=== PATIENT | female | born 1985 | race Caucasian/White ===

== ENCOUNTER → 2016-07-26 | Outpatient (CLI) | payer SELFPAY | LOC: HHS 09:41 | DX: Z12.83 Encounter for screening for malignant neoplasm of skin (principal) ==

== ENCOUNTER 2017-01-05 11:31 | Inpatient (IN) | payer OTHER ==
--- NOTE | 2017-01-05 12:16 | Non Stress Test Report ---
Non Stress Test Datetime Report Generated by CPN: 01/05/2017 12:16 DEMOGRAPHIC Test Number: 1 EGA NST: 40.1 INDICATION Indication for Study: Ordered by Provider MONITORING Monitor Explained: Monitor Explained; Test Explained; Patient Verbalized Understanding Time on Monitor: 01/05/2017 11:40 Time off Monitor: 01/05/2017 12:12 NST Duration: 32 NST INTERVENTIONS NST Interventions: PO Hydration Physician Notified NST: Jason BABY A: [id number] BABY A Movement : Present Contraction Frequency : Irregular FHR Baseline : 130 Accelerations : 15X15 Decelerations : None Variability : Moderate 6-25bpm NST Review: Meets Criteria for Reactive NST NST Review and Verified By : AMIE Pyle Results: Reactive NST REPORT Report Trigger: Send Report
--- NOTE | 2017-01-05 13:13 | RADIOLOGY REPORT (SQ) ---
EXAM DESCRIPTION: U/S OB LIMITED COMPLETED DATE/TIME: 01/05/2017 12:53 pm REASON FOR STUDY: CHARI at 40.1 weeks postdates COMPARISON: None. TECHNIQUE: Limited transabdominal grayscale ultrasound for evaluation of specific requested obstetri wilberto parameters. LIMITATIONS: None. FINDINGS: CERVICAL LENGTH: Not applicable. Greater than 20 weeks. Need transvaginal study if indicat ed. Closed. CHARI: 1.8 cm. FHR: 123 beats per minute. PRESENTATION: Cephalic. OTHER: No other significant findings. IMPRESSION: LIMITED OBSTETRICAL ULTRASOUND WITH MEASURED PARAMETERS DELINEATED ABOVE. Trimester of : 3rd TECHNICAL DOCUMENTATION: JOB ID: [id number] [employer]- All Rights Reserved
[2017-01-05] MEDS ORDERED: RINGERS SOLUTION,LACTATED 1,000 ML IV ONE (14:03)
[2017-01-05] MEDS ORDERED: PENICILLIN G POTASSIUM 5,000,000 UNIT in DEXTROSE 5%-WATER 100 ML IV ONE (14:20)
[2017-01-05 14:37] LABS: ABSOLUTE EOSINOPHILS # (AUTO) 0.1 10^3/uL (0.0-0.6); ABSOLUTE LYMPHOCYTES (AUTO) 1.3 10^3/uL (0.5-4.7); ABSOLUTE MONOCYTES (AUTO) 0.5 10^3/uL (0.1-1.4); ABSOLUTE NEUT (AUTO) 6.1 10^3/uL (1.7-8.2); BASOPHILS % (AUTO) 0.2 % (0-2); EOSINOPHILS % (AUTO) 0.8 % (0-6); HEMATOCRIT 35.9 % (36.0-47.0); HEMOGLOBIN 12.3 g/dL (12.0-15.5); LYMPHOCYTES % (AUTO) 16.4 % (13-45); MEAN CORPUSCULAR HEMOGLOBIN 28.9 pg (27.0-33.4); MEAN CORPUSCULAR HGB CONC 34.1 g/dL (32.0-36.0); MEAN CORPUSCULAR VOLUME 85 fl (80-97); MONOCYTES % (AUTO) 6.1 % (3-13); RED BLOOD COUNT 4.24 10^6/uL (3.72-5.28); RED CELL DISTRIBUTION WIDTH 13.8 % (11.5-14.0); SEGMENTED NEUTROPHILS % (AUTO) 76.5 % (42-78); WHITE BLOOD COUNT 7.9 10^3/uL (4.0-10.5)
[2017-01-05] MEDS ORDERED: MISOPROSTOL 0.1 MG TABLET ONE ×2 (15:51→15:59)
[2017-01-05] MEDS: RINGERS SOLUTION,LACTATED 1,000 ML IV PRN ×3 (15:56→20:48)
[2017-01-05] MEDS ORDERED: MISOPROSTOL 0.1 MG TABLET PO SCH (16:00)
[2017-01-05] MEDS ORDERED: PENICILLIN G POTASSIUM 2,500,000 UNIT in DEXTROSE 5%-WATER 50 ML IV SCH (18:21)
[2017-01-05] MEDS ORDERED: DINOPROSTONE 10 MG VAGINAL INSERT.SR PV PRN (20:17)
[2017-01-05] MEDS ORDERED: PENICILLIN G-K 5 MILLION UNIT VIAL IV PRN (20:40)
[2017-01-05] MEDS ORDERED: DINOPROSTONE 10 MG VAGINAL INSERT.SR ONE (20:46)
[2017-01-05] MEDS ORDERED: VALACYCLOVIR HCL 500 MG TABLET ONE (22:21)
[2017-01-05] MEDS: VALACYCLOVIR HCL 500 MG TABLET PO SCH (22:22)
[2017-01-06] MEDS ORDERED: PROMETHAZINE HCL INJ 50 MG/1 ML VIAL IM PRN (03:34)
[2017-01-06] MEDS ORDERED: NALBUPHINE HCL INJ 10 MG/1 ML AMPULE INJ ONE (03:35)
[2017-01-06] MEDS ORDERED: PROMETHAZINE HCL INJ 25 MG/1 ML VIAL ONE (03:36)
[2017-01-06] MEDS ORDERED: NALBUPHINE HCL INJ 10 MG/1 ML AMPULE ONE (03:37)
[2017-01-06 03:41] LABS: APPEARANCE,URINE CLEAR; BILIRUBIN,URINE NEGATIVE (NEGATIVE); GLUCOSE, URINE NEGATIVE (NEGATIVE); KETONES,URINE NEGATIVE (NEGATIVE); LEUKOCYTE ESTERASE,URINE NEGATIVE (NEGATIVE); NITRITE,URINE NEGATIVE (NEGATIVE); PROTEIN,URINE NEGATIVE (NEGATIVE); URINE SPECIFIC GRAVITY 1.017; UROBILINOGEN,URINE NEGATIVE mg/dL (<2.0)
[2017-01-06] MEDS: RINGERS SOLUTION,LACTATED 1,000 ML IV PRN (03:45)
[2017-01-06 03:57] LABS: URINE BARBITURATES SCREEN NEGATIVE; URINE METHADONE SCREEN NEGATIVE; URINE OPIATES LOW NEGATIVE; URINE PHENCYCLIDINE SCREEN NEGATIVE
[2017-01-06] MEDS ORDERED: TERBUTALINE SULFATE INJ/PF 1 MG/1 ML SDV ONE (05:30)
[2017-01-06] MEDS ORDERED: BUPIVACAINE HCL 0.25 % INJ/PF (2.5 MG/1 ML) 30 ML VIAL ONE (06:18)
[2017-01-06] MEDS ORDERED: FENTANYL/BUPIVACAINE/NS/PF 200 MCG/100 ML RTUINJ EPI ONE (06:18)
[2017-01-06] MEDS ORDERED: EPHEDRINE SULFATE INJ 50 MG/1 ML AMPULE ONE (06:18)
[2017-01-06] MEDS ORDERED: MISOPROSTOL 0.2 MG TABLET ONE ×2 (07:03→07:04)
[2017-01-06] MEDS ORDERED: LIDOCAINE 1% INJ-PF (10 MG/ML) 30 ML SDV ONE (07:03)
[2017-01-06] MEDS ORDERED: OXYTOCIN/NORMAL SALINE 20 UNIT/1,000 ML RTUINJ ONE (07:04)
--- NOTE | 2017-01-06 07:08 | L&D Progress Notes ---
PROGRESS NOTES Datetime Report Generated by CPN: 01/06/2017 07:08 PROGRESS NOTE Impression: Normal Progression of Labor Impression Other: Utero-placental insufficiency Procedures: Artificial ROM; Intrauterine Pressure Catheter; Scalp Electrode Procedures- Other: Terbutaline administered x 3 Plan: Continue Present Management Plan Other: minimize BP drops Informed Consent Obtained: Risks, Benefits and Alternatives Discussed Vital Signs : Reviewed; Within Normal Limits Comment: Called by nursing 2nd to prolonged decel down to the 90s for 7mins. Pts cervidil was pulled by nursing staff, bolused fluid and given oxygen. Pt was given 3 doses of terbutaline to tocalize and allow recovery. Best recovery in knee chest. Fetus eventually recovered and was allowed to lay down and be positioned for her epidural. VAGINAL EXAM Dilatation: 5 Dilatation: closed Effacement: 90 Effacement: thick Station: 0 Station: -2 Contractions: 1-2 Contractions: irregular MEMBRANES Membranes: Ruptured Membranes: Intact FETUS A FHR - Baseline: 120s Monitoring: External US Variability: Moderate 6-25bpm Accelerations: Absent Decelerations: Early; Late; Prolonged FHR Category: Category II FHR Comments: Utereoplacental insufficiency noted with tachysystole Estimated Weight (gm): 3000g Estimated Weight (gm): Approx. 3000g Presentation: Vertex SIGNATURE SIGNATURE: [id number] SIGNATURE: [id number] Signature: with User ID: [email or web address]
[2017-01-06] MEDS ORDERED: PENICILLIN G-K 5 MILLION UNIT VIAL ONE (08:59)
[2017-01-06] MEDS ORDERED: OXYTOCIN/NORMAL SALINE 20 UNIT/1,000 ML RTUINJ IV PRN ×2 (10:27→13:12)
[2017-01-06] MEDS ORDERED: NA PHOS,M-B/NA PHOS,DI-BA (ADULT) 133 ML ENEMA PR PRN (13:12)
[2017-01-06] MEDS ORDERED: MAGNESIUM HYDROXIDE SUSP 30 ML UDCUP PO PRN (13:12)
[2017-01-06] MEDS ORDERED: PROMETHAZINE HCL 25 MG TABLET PO PRN (13:12)
[2017-01-06] MEDS ORDERED: ACETAMINOPHEN WITH CODEINE #3 TABLET PO PRN ×2 (13:12)
[2017-01-06] MEDS ORDERED: MEASLES,MUMPS&RUBELLA VACC/PF 0.5 ML VIAL SUBCUT PRN (13:12)
[2017-01-06] MEDS ORDERED: PROMETHAZINE HCL 25 MG SUPP.RECT PR PRN (13:12)
[2017-01-06] MEDS ORDERED: DIPH/PERTUSS(ACELL)/TETANUS VAC/PF 0.5 ML SYR (>=10YO) IM PRN (13:12)
[2017-01-06] MEDS ORDERED: BENZOCAINE/MENTHOL AEROSOL SPRAY 56 ML TOP PRN (13:12)
[2017-01-06] MEDS ORDERED: DIBUCAINE 1% OINTMENT 28 GM TP PRN (13:12)
[2017-01-06] MEDS ORDERED: PROMETHAZINE HCL INJ 25 MG/1 ML VIAL IV PRN (13:12)
[2017-01-06] MEDS ORDERED: ACETAMINOPHEN 650 MG SUPP.RECT PR PRN (13:12)
[2017-01-06] MEDS ORDERED: PSEUDOEPHEDRINE HCL 30 MG TABLET PO PRN (13:12)
[2017-01-06] MEDS ORDERED: ZOLPIDEM TARTRATE 5 MG TABLET PO PRN (13:12)
[2017-01-06] MEDS ORDERED: GLYCERIN/WITCH HAZEL LEAF 1 EACH MED..PAD TP PRN (13:12)
[2017-01-06] MEDS ORDERED: DIPHENHYDRAMINE HCL 25 MG CAPSULE PO PRN (13:12)
--- NOTE | 2017-01-06 14:32 | Delivery Summary ---
Del Sum A-C Datetime Report Generated by CPN: 01/06/2017 14:32 DELIVERY PERSONNEL DELIVERY PERSONNEL: [id number] Delivery Doctor:: Hortencia Smith MD Labor and Delivery Nurse:: Ramya Lara RN Nursery Nurse:: Porshatheresa Peterson RN MATERNAL INFORMATION Delivery Anesthesia: Epidural Medications After Delivery: Pitocin Bolus-Please Comment; Pitocin Drip 20 Units/1000ml NSS Meds After Delivery Comment: Pitocin 20 units in 1000ml NS Estimated Blood Loss (ml): 150 Maternal Complications: None LABOR SUMMARY EDC: 01/04/2017 00:00 No. Babies in Womb: 1 Attempted: No Labor Anesthesia: Epidural LABOR INFORMATION Reason for Induction: Oligohydramnios Onset of Labor: 01/06/2017 05:41 Complete Dilatation: 01/06/2017 11:47 Cervical Ripening Agents: Cervidil Oxytocin: N/A Group B Beta Strep: Positive Antibiotics # of Doses: 2 Antibiotics Time of Last Dose: 909 Name of Antibiotic Given: PCN Steroids Given: None Reason Steroids Not Administered: Not Applicable MEMBRANES Membranes Rupture Method: Artificial Rupture of Membranes: 01/06/2017 05:46 Length of Rupture (hr): 6.95 Amniotic Fluid Color: Bloody Amniotic Fluid Amount: Scant Amniotic Fluid Odor: Normal STAGES OF LABOR Stage 1 hr: 6 Stage 1 min: 6 Stage 2 hr: 0 Stage 2 min: 56 Stage 3 hr: 0 Stage 3 min: 4 Total Time in Labor hr: 7 Total Time in Labor min: 6 VAGINAL DELIVERY Episiotomy: None Laceration #1: None Laceration Extension #1: N/A Laceration Repair: Not Applicable Sponge Count Correct: Yes Sharps Count Correct: Yes CSECTION DELIVERY Primary Indication: N/A Secondary Indication: N/A CSection Incidence: N/A Labor: N/A Elective: N/A CSection Incision: N/A BABY A INFORMATION Delivery Date/Time: 01/06/2017 12:43 Method of Delivery: Vaginal Born in Route : No : N/A Forceps: N/A Vacuum Extraction: N/A Shoulder Dystocia : No PRESENTATION/POSITION BABY A Presentation: Cephalic Cephalic Presentation: Vertex Vertex Position: Left Occipital Posterior Breech Presentation: N/A PLACENTA INFORMATION BABY A Placenta Delivery Time : 01/06/2017 12:47 Placenta Method of Delivery: Spontaneous Placenta Status: Delivered SCORES BABY A Heart Rate 1 min: >100 bpm Resp Effort 1 min: Good Cry Reflex Irritability 1 min: Cough or Sneeze or Pulls Away Muscle Tone 1 min: Active Motion Color 1 min: Blue/Pale Resuscitation Effort 1 min: Tactile Stimulation SCORE 1 MIN: 8 Heart Rate 5 min: >100 bpm Resp Effort 5 min: Good Cry Reflex Irritability 5 min: Cough or Sneeze or Pulls Away Muscle Tone 5 min: Active Motion Color 5 min: Body Dennard, Extremities Blue Resuscitation Effort 5 min: Tactile Stimulation SCORE 5 MIN: 9 INFANT INFORMATION BABY A Gestational Age at Delivery: 40.2 Gestational Status: Full Term- 39- 40.6 Weeks Outcome : Liveborn Condition : Stable Infant Sex: Female IDENTIFICATION BABY A Verification Date/Time: 01/06/2017 13:25 ID Band Number: [id number] Mother's Name Verified: Yes Infant RN Verifying : B Baidy RN/ H Nicholas RN WEIGHT/LENGTH BABY A Birthweight (gm): 3358 Weight (lb): 7 Weight (oz): 6 Infant Length (in): 21.50 Infant Length (cm): 54.61 CORD INFORMATION BABY A No. Cord Vessels: 3 Nuchal Cord : Around Neck x1, Loose Cord Blood Taken: Yes-For Eval (Mom's Blood Type - or O+) Suction: Nose ASSESSMENT BABY A Complications: Multiple Late Decels Physical Findings at Delivery: Within Normal Limits Infant Respirations: Appears Normal [facility] Aide/ALS Called : No Infant Care By: H. Nicholas, RN Transferred To: Remains with Mother BABY B INFORMATION : N/A ASSESSMENT BABY C Skin to Skin: Yes Skin to Skin Time (min): 110 SIGNATURES Signature: with User ID: [email or web address]
--- NOTE | 2017-01-06 15:17 | Admission Physical ---
Datetime Report Generated by CPN: 01/06/2017 15:17 CURRENT ADMISSION Hx Assessment: The History has been Reviewed and is Current Chief Complaint Other: Not olighydramnios on APFS today Indication for Induction: Oligohydramnios Indication for Induction: Term, Intrauterine ; Obstetrical Complication Admit Plan: Admit to Unit ALLERGIES Medication Allergies: No Medication Allergies: No Known Allergies (01/05/2017) Latex: No Latex Allergies Food Allergies: None Environmental Allergies: None OBSTETRICAL HISTORY EDC: 01/04/2017 00:00 : 1 Para: 0 Gestational Diabetes: No Rh Sensitization: No Incompetent Cervix: No IZA: No Infertility: No ART Treatment: No Uterine Anomaly: No IUGR: No Hx Previous C/S: No Macrosomia: No Hx Loss/Stillborn: No PIH: No Hx : No Placenta Previa/Abruption: No Depression/PP Depression: No PTL/PROM: No Post Hemorrhage: No Current Procedures: Ultrasound Obstetrical History Comments: G1 - Current SEE RECORDS Alcohol: No Marijuana : No Cocaine: No Other Illicit Drugs: No Cigarettes: Never Smoker. 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 Surgery: No Heart Disease: No Hosp/Surgery: Yes Autoimmune Disorder: No Anesthetic Complications: No Kidney Disease: No Abnormal Pap Smear: No Neuro/Epilepsy: No Psychiatric Disorders: No Other Medical Diseases: No Hepatitis/Liver Disease: No Significant Family History: No Varicosities/Phlebitis: No Trauma/Violence : No Thyroid Dysfunction: No Medical History Comments: Left Shoulder Surgery - 2011; T_A; [place] Teeth removed; Breast Implants - 2012 INFECTIOUS HISTORY Gonorrhea: No Genital Herpes: Yes Chlamydia: No Tuberculosis: No Syphilis: No Hepatitis: No HIV/AIDS Exposure: No Rash or Viral Illness: No HPV: No Infectious History Comments: Valtrex - BID PHYSICAL EXAM General: Normal HEENT: Normal Neurologic: Normal Thyroid: Deferred Heart: Normal Lungs: Normal Back: Normal Abdomen: Normal Genitourinary Exam: Normal Extremities: Normal Pelvic Type: Adequate Physical Exam Comments: Abdomen: Gravid and NT SSE: no perineal or vaginal lesions noted Vital Signs: Reviewed; Within Normal Limits VAGINAL EXAM Dilatation: 5 Dilatation: closed Effacement: 90 Effacement: thick Station: 0 Station: -2 Contraction Comments: 1-2 Contraction Comments: irregular MEMBRANES Membranes: Ruptured Membranes: Intact FETUS A Monitoring: External US FHR- Baseline: 120s Accelerations: 15X15 Decelerations: None FHR Category: Category I FHR Comments: Reasurring status Estimated Weight (gm): 3000g Estimated Weight (gm): Approx. 3000g Presentation: Vertex Admit Comment: 31yo G1 @ 40w1d presents to L_D for APFS consisting of modified BPP of NST and CHARI. Pt reports good fm, no vb, no lof, no regular ctxs. Pt denies any problems with this . Pt denies any prodromal symptoms or active symptoms of herpes. Pt states her last dose of valtrex was this morning. PLANS FOR LABOR AND DELIVERY Labor and Delivery: None Pain Management: Natural Feeding Preference: Breast Benefit of Breast Feed Discussed: Yes Circumcision: N/A INFORMED CONSENT Informed Consent Obtained: Risks, Benefits and Alternatives Discussed Signature: with User ID: [email or web address]
[2017-01-06] MEDS: VALACYCLOVIR HCL 500 MG TABLET PO SCH ×2 (17:35→21:58)
[2017-01-06] MEDS: IBUPROFEN 800 MG TABLET PO SCH ×2 (17:35→21:58)
[2017-01-06] MEDS: DOCUSATE SODIUM 100 MG CAPSULE PO SCH (17:37)
[2017-01-06] MEDS: FERROUS SULFATE 325 MG TABLET PO SCH (17:38)
[2017-01-06] MEDS: FAMOTIDINE 20 MG TABLET PO SCH (21:58)
[2017-01-07] MEDS: IBUPROFEN 800 MG TABLET PO SCH ×3 (06:26→21:35)
[2017-01-07 07:42] LABS: HEMOGLOBIN 10.4 g/dL (12.0-15.5); HGB HCT DIFFERENCE 1.2; MEAN CORPUSCULAR HEMOGLOBIN 29.4 pg (27.0-33.4); MEAN CORPUSCULAR HGB CONC 34.6 g/dL (32.0-36.0); MEAN CORPUSCULAR VOLUME 85 fl (80-97); RED BLOOD COUNT 3.52 10^6/uL (3.72-5.28); RED CELL DISTRIBUTION WIDTH 14.1 % (11.5-14.0); WHITE BLOOD COUNT 12.4 10^3/uL (4.0-10.5)
--- NOTE | 2017-01-07 10:02 | PDOC PROGRESS REPORT ---
Subjective-OB Subjective: Post Delivery Day: 32 year old. Denies any needs at this time Doing well, no c/o, breast feeding, voiding, no c/o Physical Exam (OB) Vital Signs: Temp Pulse Resp BP Pulse Ox 98.1 F 66 17 114/65 96 01/07/17 08:06 01/07/17 08:06 01/07/17 08:06 01/07/17 08:06 01/07/17 08:06 Intake & Output 01/06/17 01/07/17 01/08/17 06:59 06:59 06:59 Weight 78.85 kg - PIH/Pre-Eclampsia DTR's: 1 + Clonus: Negative Headache: Absent Epigastric Pain: No Visual Changes: No - Lochia Lochia Amount: Scant < 10 ml Lochia Color: Rubra/Red - Abdomen Description: Soft, Flat Hernia Present: No Fundal Description: Firm, Midline Describe if Not Midline: devated to left, pt due to void Fundal Height: u/u - u/2 Objective-Diagnostic Laboratory: 01/07/17 07:07 01/07/17 07:07 WBC 12.4 H RBC 3.52 L Hgb 10.4 L Hct 30.0 L MCV 85 MCH 29.4 MCHC 34.6 RDW 14.1 H Plt Count 103 L Assessment and Plan(PN) - Assessment and Plan (1) Anemia Qualifiers: Anemia type: iron deficiency Is this a current diagnosis for this admission?: Yes (2) Oligohydramnios delivered Is this a current diagnosis for this admission?: Yes (3) Vaginal delivery Is this a current diagnosis for this admission?: Yes - Time Spent with Patient Time with patient: Less than 15 minutes Medications reviewed and adjusted accordingly: Yes - Disposition Anticipated Discharge: Home Within: within 24 hours
[2017-01-07] MEDS: FERROUS SULFATE 325 MG TABLET PO SCH ×2 (10:51→17:19)
[2017-01-07] MEDS: PRENATAL VITAMIN W DHA CAPSULE PO SCH (10:51)
[2017-01-07] MEDS: DOCUSATE SODIUM 100 MG CAPSULE PO SCH ×2 (10:51→17:19)
[2017-01-07] MEDS: SENNOSIDES/DOCUSATE 8.6-50 MG 1 EACH TABLET PO SCH (10:51)
[2017-01-07] MEDS: FAMOTIDINE 20 MG TABLET PO SCH ×2 (10:51→21:35)
[2017-01-07] MEDS: VALACYCLOVIR HCL 500 MG TABLET PO SCH ×2 (10:51→21:35)
[2017-01-08] MEDS: IBUPROFEN 800 MG TABLET PO SCH ×2 (05:16→14:11)
[2017-01-08 09:07] VITALS: BP 108/63
[2017-01-08] MEDS: VALACYCLOVIR HCL 500 MG TABLET PO SCH (09:21)
[2017-01-08] MEDS: SENNOSIDES/DOCUSATE 8.6-50 MG 1 EACH TABLET PO SCH (09:21)
[2017-01-08] MEDS: DOCUSATE SODIUM 100 MG CAPSULE PO SCH ×2 (09:21→17:28)
[2017-01-08] MEDS: PRENATAL VITAMIN W DHA CAPSULE PO SCH (09:21)
[2017-01-08] MEDS: FERROUS SULFATE 325 MG TABLET PO SCH ×2 (09:21→17:28)
[2017-01-08] MEDS: FAMOTIDINE 20 MG TABLET PO SCH (09:21)
--- NOTE | 2017-01-08 10:07 | PDOC DISCHARGE SUMMARY ---
Final Diagnosis Discharge Date: 01/08/17 - Final Diagnosis (1) Acute blood loss anemia Is this a current diagnosis for this admission?: Yes (2) Oligohydramnios delivered Is this a current diagnosis for this admission?: Yes (3) Vaginal delivery Is this a current diagnosis for this admission?: Yes Discharge Data - Discharge Medication Home Medications: No122/Iron/Folic Acid [ Multi Tablet] 1 each PO DAILY 01/05/17 Ferrous Sulfate [Feosol 325 mg Tablet] 325 mg PO BID #60 tablet 01/08/17 Ibuprofen [Motrin 800 mg Tablet] 800 mg PO Q8HP PRN #30 tablet 01/08/17 Reason(s) for Admission: Induction of Labor - oligohydramnios Procedures: NST, Ultrasound Intrapartum Procedure(s): Spontaneous Vaginal Delivery - Diagnosis Test Laboratory: Temp Pulse Resp BP Pulse Ox 98.6 F 66 16 129/84 H 100 01/08/17 08:06 01/08/17 08:06 01/08/17 08:06 01/07/17 21:03 01/08/17 08:06 01/05/17 01/06/17 01/07/17 14:26 03:19 07:07 RBC 4.24 3.52 L Hgb 12.3 10.4 L Hct 35.9 L 30.0 L Urine Opiates Screen NEGATIVE - Discharge information/Instructions Discharge Activity: Activity As Tolerated, Balance Activity w/Rest, No Lifting/ Push/Pulling, Pelvic Rest, Slowly Increase Activity Discharge Diet: Regular Disposition: HOME, SELF-CARE Follow up with: [facility] in: 4, Weeks
[2017-01-08] MEDS ORDERED: MISOPROSTOL 0.2 MG TABLET PV ONE (12:25)
== END 2017-01-08 18:35 | disposition home or self-care (01) | DRG 774 ==
LOC: LC 11:31 → LR 13:29 → 2S 01-06 15:15
PROVIDERS: ADMIT Obstetrics & Gynecology; ATTEND Obstetrics & Gynecology
PROC: 10E0XZZ Delivery of Products of Conception, External Approach (ICD-10-PCS; principal; 2017-01-06)
DX: O99.824 Streptococcus B carrier state complicating childbirth (principal); O98.32 Other infections with a predominantly sexual mode of transmission complicating childbirth; O41.03X0 Oligohydramnios, third trimester, not applicable or unspecified; Z37.0 Single live birth; O69.81X0 Labor and delivery complicated by cord around neck, without compression, not applicable or unspecified; A60.09 Herpesviral infection of other urogenital tract; O99.02 Anemia complicating childbirth; D50.9 Iron deficiency anemia, unspecified; O76 Abnormality in fetal heart rate and rhythm complicating labor and delivery; B96.20 Unspecified Escherichia coli [E. coli] as the cause of diseases classified elsewhere; Z3A.40 40 weeks gestation of pregnancy
CPT/HCPCS: 36415; 76815; 80307; 81005; 85025; 85027; 86592; 86850; 86900; 86901; 87070; 87077; 87186; 87205; 88307; J2300; J2540; J2550; J2590; J3105; J3490